=== PATIENT | female | born 1945 | race Caucasian/White ===

== ENCOUNTER → 2016-08-21 | Outpatient (CLI) | payer MEDICARE, BC ==
[~2016-08-21] MED LIST: BENTYL 10MG10 MG/CAP PO; CALCIUM600 MG PO; CETAPHIL ANTIBA1 SOA TP; CETAPHIL1 CRE TP; DIGESTIVE ENZYM1 TAB PO; HYDROCORTISONE RC; HYGROTON25 MG PO; KLOR-CON M2020 MEQ PO; LIPITOR20 MG PO; LOMOTIL 0.025 M1 TAB PO; MAG-OX 400400 MG/TAB PO; METROCREAM CREA45 GM TP; PREVIDENT PO; QUESTRAN4 GM/9 GM PO; SINEQUAN 5050 MG/CAP PO; TYLENOL W/COD1 UDTAB PO; ULTRAM 50MG TAB50 MG PO; XANAX 0.5MG0.5 MG PO; XANAX 1MG1 MG PO; XANAX2 MG PO; ZESTRIL 20MG TA20 MG PO; ZOFRAN ODT4 MG PO; [UNRECOGNIZED DRUG - OTHER] RC
== END ==
LOC: MC.RAD 13:40
DX: Z12.31 Encounter for screening mammogram for malignant neoplasm of breast (principal)

== ENCOUNTER 2017-08-15 09:03 | Emergency (ER) | payer MEDICARE, BC ==
[2017-08-15 09:08] VITALS: BP 141/87; PULSE 91; TEMP 97.3
[2017-08-15] MEDS ORDERED: ULTRAM 50MG TAB50 MG PO (09:19)
== END 2017-08-15 10:15 | disposition home or self-care (01) ==
LOC: COL.ER 09:03
DX: M79.672 Pain in left foot (principal); M77.32 Calcaneal spur, left foot; I10 Essential (primary) hypertension; E78.5 Hyperlipidemia, unspecified; G20 Parkinson's disease; K58.9 Irritable bowel syndrome, unspecified; Z79.52 Long term (current) use of systemic steroids

== ENCOUNTER → 2017-10-14 | Outpatient (CLI) | payer MEDICARE, BC | LOC: MC.RAD 11:21 | DX: Z12.31 Encounter for screening mammogram for malignant neoplasm of breast (principal); R92.1 Mammographic calcification found on diagnostic imaging of breast ==

== ENCOUNTER → 2017-10-22 | Outpatient (CLI) | payer MEDICARE, BC | LOC: MC.RAD 09:44 | DX: R92.0 Mammographic microcalcification found on diagnostic imaging of breast (principal); Z98.890 Other specified postprocedural states ==

== ENCOUNTER → 2017-10-29 | Outpatient (CLI) | payer MEDICARE, BC | LOC: MC.RAD 06:50 | DX: D24.2 Benign neoplasm of left breast (principal); R92.1 Mammographic calcification found on diagnostic imaging of breast ==

== ENCOUNTER 2018-03-15 11:26 | Inpatient (IN) | payer MEDICARE, BC ==
[~2018-03-15] VITALS: Ht 157.5 cm; Wt 63.6 kg
[2018-03-15 12:17] LABS: BASO # 0.1 (0.0-0.2); BASO % 0.4 % (0.0-2.0); EOS % 0.3 % (0-4.0); GRAN # 11.3 (1.4-6.5); GRAN % 86.3 % (42.2-75.2); HEMATOCRIT 43.5 % (37.0-47.0); HEMOGLOBIN 14.9 g/dl (12.5-16.0); LYMPH % 7.5 % (20.0-51.0); MEAN CELL VOLUME 98 fl (80.0-100.0); MEAN CORPUSCULAR HEMOGLOBIN 33 pg (27.0-31.0); MEAN CORPUSCULAR HGB CONC 34 g/dl (33.0-37.0); MEAN PLATELET VOLUME 9.8 fl (7.4-10.4); MONO # 0.7 (0.1-0.6); PLATELET COUNT 253 K/mm3 (130-400); RED BLOOD COUNT 4.46 M/mm3 (4.10-5.30); REDCELL DISTRIBUTION WIDTH-CV 11.7 % (11.5-14.5)
[2018-03-15 12:32] LABS: ALBUMIN 4.1 gm/dL (3.5-5.0); BILIRUBIN,TOTAL 0.6 mg/dL (0.0-1.0); CALCIUM 9.9 mg/dL (8.4-10.2); CREATININE, serum 2.08 mg/dL (0.52-1.25); POTASSIUM 3.3 mmol/L (3.4-5.0); TOTAL PROTEIN 7.6 gm/dL (6.4-8.2)
[2018-03-15 12:49] LABS: C-REACTIVE PROTEIN 22.9 mg/dL (0.0-0.9)
[2018-03-15 13:34] LABS: COLLECTION METHOD CLEAN CATCH
[2018-03-15 13:45] LABS: HYALINE CAST >12 /lpf; MUCOUS Present /lpf; PH 5 (5-8); URINE APPEARANCE Cloudy; URINE BACTERIA Rare /hpf; URINE BILIRUBIN Negative (NEGATIVE); URINE BLOOD 1+ (NEGATIVE); URINE COLOR Yellow; URINE GLUCOSE Negative (NEGATIVE); URINE KETONE 1+ (NEGATIVE); URINE LEUKOCYTE ESTERASE Negative (NEGATIVE); URINE NITRATE Negative (NEGATIVE); URINE PROTEIN(semi-quant) 2+ (NEGATIVE); URINE RBC 0-2 /hpf; URINE UROBILINOGEN Negative (NEGATIVE)
[2018-03-15] MEDS ORDERED: ASPIRIN 81M81 MG/TA2 PO (13:50)
[2018-03-15] MEDS ORDERED: ZESTRIL40 MG PO (13:55)
[2018-03-15] MEDS ORDERED: CLARITIN 1010 MG/TAB PO (13:55)
[2018-03-15] MEDS ORDERED: FLONASEALLERGY NS (13:55)
[2018-03-15] MEDS ORDERED: MASON NATURAL2000 IU (13:56)
[2018-03-15] MEDS ORDERED: MAG-G500 MG (13:56)
[2018-03-15 16:28] VITALS: BP 142/80; PULSE 100; TEMP 98.4
[2018-03-15 16:31] VITALS: BP 142/80; PULSE 100; TEMP 89.4; TEMP 98.4
[2018-03-15 20:03] VITALS: BP 160/73; PULSE 103; TEMP 98.6
[2018-03-16] VITALS (25 sets, daily range): BP systolic 128–186; BP diastolic 62–91; PULSE 88–129; TEMP 98.2–98.8
[2018-03-16 05:59] LABS: BASO # 0.1 (0.0-0.2); BASO % 0.4 % (0.0-2.0); EOS % 0.1 % (0-4.0); GRAN # 9.8 (1.4-6.5); LYMPH # 0.8 (1.2-3.4); LYMPH % 7.1 % (20.0-51.0); MEAN CELL VOLUME 97 fl (80.0-100.0); MEAN CORPUSCULAR HGB CONC 34 g/dl (33.0-37.0); MEAN PLATELET VOLUME 9.7 fl (7.4-10.4); MONO # 0.7 (0.1-0.6); MONO % 6.3 % (1.7-9.3); PLATELET COUNT 194 K/mm3 (130-400); RED BLOOD COUNT 3.71 M/mm3 (4.10-5.30); REDCELL DISTRIBUTION WIDTH-CV 11.7 % (11.5-14.5)
[2018-03-16 06:05] LABS: HEMATOCRIT 36.1 % (37.0-47.0); HEMOGLOBIN 12.2 g/dl (12.5-16.0); MEAN CORPUSCULAR HEMOGLOBIN 33 pg (27.0-31.0)
[2018-03-16 06:11] LABS: INR 1.3 (0.8-3.0); PROTHROMBIN TIME 14.2 SECONDS (9.7-12.8)
[2018-03-16 06:18] LABS: CALCIUM 9.3 mg/dL (8.4-10.2); CREATININE, serum 1.3 mg/dL (0.52-1.25); POTASSIUM 3.8 mmol/L (3.4-5.0)
[2018-03-17 00:25] VITALS: BP 148/70; PULSE 89; TEMP 98.6
[2018-03-17 05:20] VITALS: BP 149/71; PULSE 83; TEMP 97.5
[2018-03-17 06:15] LABS: MEAN CELL VOLUME 98 fl (80.0-100.0); MEAN CORPUSCULAR HEMOGLOBIN 33 pg (27.0-31.0); MEAN CORPUSCULAR HGB CONC 34 g/dl (33.0-37.0); PLATELET COUNT 228 K/mm3 (130-400); RED BLOOD COUNT 3.63 M/mm3 (4.10-5.30); REDCELL DISTRIBUTION WIDTH-CV 11.9 % (11.5-14.5)
[2018-03-17 06:19] LABS: HEMATOCRIT 35.6 % (37.0-47.0)
[2018-03-17 06:28] LABS: CALCIUM 9.3 mg/dL (8.4-10.2); CREATININE, serum 0.95 mg/dL (0.52-1.25); POTASSIUM 4.2 mmol/L (3.4-5.0)
[2018-03-17 07:19] LABS: BAND 17 % (0-10); LYMPHOCYTE 12 % (20.0-51.0); METAMYELOCYTE 1 % (0-0); NEUTROPHILS 59 % (42.0-75.2); PLATELET ESTIMATE NORMAL (NORMAL)
[2018-03-17 08:00] VITALS: BP 158/74; PULSE 87; TEMP 97.9
[2018-03-17 12:00] VITALS: BP 173/76; PULSE 95; TEMP 97.9
[2018-03-17 17:34] VITALS: BP 134/68; PULSE 100; TEMP 98.1
[2018-03-17 20:39] VITALS: BP 151/60; PULSE 91; TEMP 98.6
[2018-03-18] VITALS (9 sets, daily range): BP systolic 97–179; BP diastolic 45–89; PULSE 70–108; TEMP 97–98.7
[2018-03-19 03:30] VITALS: BP 152/55; PULSE 98; TEMP 98.4
[2018-03-19 05:58] LABS: HEMOGLOBIN 12.2 g/dl (12.5-16.0); MEAN CELL VOLUME 94 fl (80.0-100.0); MEAN CORPUSCULAR HEMOGLOBIN 33 pg (27.0-31.0); MEAN CORPUSCULAR HGB CONC 35 g/dl (33.0-37.0); PLATELET COUNT 286 K/mm3 (130-400); RED BLOOD COUNT 3.72 M/mm3 (4.10-5.30); REDCELL DISTRIBUTION WIDTH-CV 12.2 % (11.5-14.5)
[2018-03-19 05:59] LABS: HEMATOCRIT 35.1 % (37.0-47.0)
[2018-03-19 06:08] LABS: CALCIUM 8.5 mg/dL (8.4-10.2); CREATININE, serum 0.76 mg/dL (0.52-1.25); MAGNESIUM 1.7 mg/dL (1.6-2.3)
[2018-03-19 06:21] LABS: POTASSIUM 2.5 mmol/L (3.4-5.0)
[2018-03-19 06:53] LABS: BAND 7 % (0-10); EOSINOPHIL 2 % (0-4); LYMPHOCYTE 23 % (20.0-51.0); NEUTROPHILS 62 % (42.0-75.2)
[2018-03-19 06:54] LABS: PLATELET ESTIMATE NORMAL (NORMAL)
[2018-03-19 07:13] VITALS: BP 156/60; PULSE 105; TEMP 99.1
[2018-03-19] MEDS ORDERED: LEVAQUIN 750MG750 M1 PO (08:52)
[2018-03-19] MEDS ORDERED: FLAGYL500 MG PO (08:53)
[2018-03-19] MEDS ORDERED: NORCO 325 MG-51 TAB PO (08:55)
[2018-03-19 11:09] VITALS: BP 152/85; PULSE 108; TEMP 97.6
[2018-03-19 15:29] VITALS: BP 143/83; PULSE 109; TEMP 98.3
== END 2018-03-19 16:18 | disposition home or self-care (01) | DRG 373 ==
LOC: COL.ER 11:26 → SURG 14:20
PROVIDERS: Internal Medicine; Nurse Practitioner; Physician Assistant; Surgery
PROC: 0D9J30Z Drainage of Appendix with Drainage Device, Percutaneous Approach (ICD-10-PCS; principal; 2018-03-16)
DX: K35.33 Acute appendicitis with perforation, localized peritonitis, and gangrene, with abscess (principal); I10 Essential (primary) hypertension; K58.0 Irritable bowel syndrome with diarrhea; E78.5 Hyperlipidemia, unspecified; E87.6 Hypokalemia; N28.9 Disorder of kidney and ureter, unspecified; E83.42 Hypomagnesemia
CPT/HCPCS: 99223-AI; 99232-AI; 99239; C9113; J0360; J1170; J1650; J1956; J2250; J2405; J3010; J3475; J3480; J7030

== ENCOUNTER → 2018-03-23 | Outpatient (CLI) | payer MEDICARE, BC ==
[~2018-03-23] MED LIST changes: +ASPIRIN 81M81 MG/TA2 PO; +CLARITIN 1010 MG/TAB PO; +FLAGYL500 MG PO; +FLONASEALLERGY NS; +LEVAQUIN 750MG750 M1 PO; +MAG-G500 MG; +MASON NATURAL2000 IU; +NORCO 325 MG-51 TAB PO; +ZESTRIL40 MG PO
[2018-03-23 10:37] LABS: CALCIUM 9.1 mg/dL (8.4-10.2); CREATININE, serum 0.82 mg/dL (0.52-1.25); MAGNESIUM 1.2 mg/dL (1.6-2.3); POTASSIUM 3.7 mmol/L (3.4-5.0)
== END ==
LOC: COL.LAB 09:42
PROVIDERS: Internal Medicine
DX: E87.6 Hypokalemia (principal); E83.42 Hypomagnesemia

== ENCOUNTER 2018-03-24 18:19 | Emergency (ER) | payer MEDICARE, BC ==
[~2018-03-24] VITALS: Ht 157.5 cm; Wt 64.5 kg
[2018-03-24 18:22] VITALS: TEMP 98.5
[2018-03-24 19:26] LABS: BASO % 0.2 % (0.0-2.0); EOS # 0.1 (0.0-0.7); EOS % 0.6 % (0-4.0); GRAN # 8.4 (1.4-6.5); HEMATOCRIT 37.8 % (37.0-47.0); HEMOGLOBIN 12.3 g/dl (12.5-16.0); LYMPH # 2.2 (1.2-3.4); LYMPH % 18.6 % (20.0-51.0); MEAN CELL VOLUME 100 fl (80.0-100.0); MEAN CORPUSCULAR HEMOGLOBIN 33 pg (27.0-31.0); MEAN CORPUSCULAR HGB CONC 33 g/dl (33.0-37.0); MEAN PLATELET VOLUME 9.9 fl (7.4-10.4); MONO # 0.8 (0.1-0.6); MONO % 7.2 % (1.7-9.3); PLATELET COUNT 250 K/mm3 (130-400); RED BLOOD COUNT 3.77 M/mm3 (4.10-5.30); REDCELL DISTRIBUTION WIDTH-CV 12.6 % (11.5-14.5)
[2018-03-24 19:39] LABS: ALBUMIN 3.7 gm/dL (3.5-5.0); BILIRUBIN,TOTAL 0.3 mg/dL (0.0-1.0); C-REACTIVE PROTEIN 1.5 mg/dL (0.0-0.9); CALCIUM 9.1 mg/dL (8.4-10.2); CREATININE, serum 0.9 mg/dL (0.52-1.25); TOTAL PROTEIN 6.9 gm/dL (6.4-8.2)
[2018-03-24 19:53] LABS: COLLECTION METHOD CLEAN CATCH
[2018-03-24 20:14] LABS: HYALINE CAST >12 /lpf; MUCOUS Present /lpf; PH 6 (5-8); SQUAMOUS EPITHELIAL 20-50 /hpf; URINE APPEARANCE Hazy; URINE BACTERIA Rare /hpf; URINE BILIRUBIN Negative (NEGATIVE); URINE BLOOD Negative (NEGATIVE); URINE COLOR Yellow; URINE GLUCOSE Negative (NEGATIVE); URINE KETONE Negative (NEGATIVE); URINE LEUKOCYTE ESTERASE 2+ (NEGATIVE); URINE NITRATE Negative (NEGATIVE); URINE PROTEIN(semi-quant) 1+ (NEGATIVE); URINE UROBILINOGEN Negative (NEGATIVE)
[2018-03-24 20:59] VITALS: BP 163/76; PULSE 113
== END 2018-03-24 21:06 | disposition home or self-care (01) ==
LOC: COL.ER 18:19
PROVIDERS: Emergency Medicine
DX: R10.9 Unspecified abdominal pain (principal); K58.9 Irritable bowel syndrome, unspecified; I10 Essential (primary) hypertension; E78.5 Hyperlipidemia, unspecified; Z79.51 Long term (current) use of inhaled steroids; Z79.82 Long term (current) use of aspirin; Z90.49 Acquired absence of other specified parts of digestive tract; Z98.890 Other specified postprocedural states
CPT/HCPCS: J2270; J7030; Q9967

== ENCOUNTER 2018-06-23 06:52 | Inpatient (IN) | payer MEDICARE, BC ==
[~2018-06-23] VITALS: Ht 157.5 cm; Wt 63.7 kg
[2018-06-23] VITALS (10 sets, daily range): BP systolic 126–171; BP diastolic 44–70; PULSE 88–104; TEMP 97.6–9736
[~2018-06-23 06:52] MED LIST changes: -MAG-G500 MG; +MAG-G500 MG PO
[2018-06-23] MEDS ORDERED: DIGESTIVE PROB1 EACH PO (07:55)
--- NOTE | 2018-06-23 07:58 | NUR ---
TO RM 6 AT 0710- CALL LIGHT IN REACH BROTHER AT BEDSIDE.
--- NOTE | 2018-06-23 12:45 | NUR ---
returned to room per bed from PACU, awake and alert but sleepy, IV infusing per dial-a-flow at rate 100ml/hr, O2 off and O2 sat 98%, has 6cm area of bloody drainage on distal midline abdominal dressing, has bandaid to left lower quadran, abdomen soft but slightly distended, full assessment completed, see interventions for further info, Dr. Fonseca in visiting with patient and her ,
--- NOTE | 2018-06-23 13:00 | NUR ---
given scheduled antibiotics with sips of water and crackers,
--- NOTE | 2018-06-23 13:30 | NUR ---
assisted up to bathroom and voided qs, then back to bed and will continue to rest, drainage to dressing remains the same
--- NOTE | 2018-06-23 14:30 | NUR ---
assisted up to bathroom and voided qs and then back to bed
--- NOTE | 2018-06-23 15:07 | NUR ---
c/o pain over belly buttom at 3/10 and medicated with percocet 5mg tab, also c/o minimal nausea, given crackers and sprite
--- NOTE | 2018-06-23 15:30 | NUR ---
midline dressing has increased drainage to distal end and some down the middle, distal end reinforced with hypafix tape
--- NOTE | 2018-06-23 16:24 | NUR ---
states relief from pain pill, will order something light to eat, abdominal dressing remains intact and no new drainage noted
--- NOTE | 2018-06-23 17:40 | NUR ---
she called asking if she could have something for emesis, entered room and she had a small amount liquid emesis after taking only a couple of bites of food, medicated with zofran 4mg slow IV
--- NOTE | 2018-06-23 18:50 | NUR ---
bedside shift report given to TANNER Vasquez
--- NOTE | 2018-06-23 19:30 | NUR ---
Pt. sitting up in bed at this time. Pt. is A&OX3, assessment complete. IV to lt. wrist patent, IV fluids infusing per orders. Pt. reports pain at a 3 on pain scale at this time. Midline incision with airstrip, drainage noted. Pt. denies further needs at this time. Call light within reach.
[2018-06-24] VITALS (7 sets, daily range): BP systolic 118–151; BP diastolic 49–70; PULSE 85–99; TEMP 97.8–99.1
--- NOTE | 2018-06-24 06:03 | NUR ---
Pt. slept off and on through the night. Pt. remains A&OX3. IV to lt wrist patent. Pt. given pain meds per request through the night. Dressing to abd, with some drainage noted. Pt. denies further needs at this time. Call light within reach.
--- NOTE | 2018-06-24 06:55 | NUR ---
awake resting in bed, bedside shift report received from TANNER Vasquez
--- NOTE | 2018-06-24 08:00 | NUR ---
sitting up on side of bed, IV to INT, will order breakfast soon, denies abdominal pain, c/o pain to right foot, will monitor
--- NOTE | 2018-06-24 09:15 | NUR ---
resting in bed, has had small amount of breakfast, c/o pain 10/14 and medicated with percocet 5mg 1 tab, abdominal dressing with mod amount old drainage
--- NOTE | 2018-06-24 10:02 | NUR ---
Dr Fonseca in to see patient, airstrip removed and incision with ludivina CD&I, redressed with new airstrip, INT with some blooding oozing, dressing removed and cleaned with gauze and redressed with tegaderm, will get up and ambulate in [place] independently
[2018-06-24 10:27] LABS: INR 1.1 (0.8-3.0); PROTHROMBIN TIME 12.1 SECONDS (9.7-12.8)
--- NOTE | 2018-06-24 10:29 | NUR ---
am meds given, ambulating in [place] independently
[2018-06-24 10:32] LABS: ALBUMIN 4.2 gm/dL (3.5-5.0); BILIRUBIN,TOTAL 0.5 mg/dL (0.0-1.0); CALCIUM 9.2 mg/dL (8.4-10.2); CREATININE, serum 0.78 mg/dL (0.52-1.25); POTASSIUM 4.1 mmol/L (3.4-5.0); TOTAL PROTEIN 7.4 gm/dL (6.4-8.2)
[2018-06-24 10:38] LABS: HEMATOCRIT 37.3 % (37.0-47.0); HEMOGLOBIN 12.6 g/dl (12.5-16.0); MEAN CELL VOLUME 97 fl (80.0-100.0); MEAN CORPUSCULAR HEMOGLOBIN 33 pg (27.0-31.0); MEAN CORPUSCULAR HGB CONC 34 g/dl (33.0-37.0); MEAN PLATELET VOLUME 9.7 fl (7.4-10.4); PLATELET COUNT 195 K/mm3 (130-400); RED BLOOD COUNT 3.84 M/mm3 (4.10-5.30); REDCELL DISTRIBUTION WIDTH-CV 12.2 % (11.5-14.5)
--- NOTE | 2018-06-24 10:43 | NUR ---
Initial visit; Living Skills Advisor introduced herself to patient and learned that patient's [facility] has been notified that she is a patient here at [facility]. Living Skills Advisor wished her a thorough recovery.
[2018-06-24 11:05] LABS: BAND 8 % (0-10); LYMPHOCYTE 10 % (20.0-51.0); NEUTROPHILS 78 % (42.0-75.2); PLATELET ESTIMATE NORMAL (NORMAL)
--- NOTE | 2018-06-24 11:37 | NUR ---
SUJEY student met with patient to discuss discharge plan. The patient lives in [place] with her brother, Sergo. The patient does not use any assistive devices and is indpendent with ADLs. The patient's PCP is Dr. Lori Kendrick and she receives her medications from [facility]. The patient reports that she receives assitance from [employer] with prescription coverage. The patient's DPOA-HC is in EMR and she designates her brother. The patient plans to return home upon discharge. Patient reports that doctor believes that will be tomorrow, 06/25. No identified needs at this time.
--- NOTE | 2018-06-24 12:00 | NUR ---
up and about in room independently
--- NOTE | 2018-06-24 13:00 | NUR ---
resting in bed, has had small amount lf lunch and tolerated well
--- NOTE | 2018-06-24 14:15 | NUR ---
c/o pain 11/14 to abdomen, medicated with percocet 5mg 1 tab
--- NOTE | 2018-06-24 15:42 | NUR ---
ambulating in [place] with brother
--- NOTE | 2018-06-24 18:49 | NUR ---
bedside shift report given to TANNER Dawkins
[2018-06-25] VITALS (7 sets, daily range): BP systolic 108–154; BP diastolic 48–74; PULSE 89–108; TEMP 97.9–99.4
--- NOTE | 2018-06-25 06:00 | NUR ---
Pt slept during the night, not much C/O pain, VS have remained stable, shift assessments no significant issues noted.
--- NOTE | 2018-06-25 11:12 | NUR ---
Pt up as tolerated. Dressing to abdomen clean, dry and intact. pt has no complaints.
--- NOTE | 2018-06-25 13:41 | NUR ---
Pt passing flatus but no BM. visit from family. Pt up in chair.
--- NOTE | 2018-06-25 16:09 | NUR ---
Patient resting in bed. She reports increased pain after going on a walk. One tab percocet per request. Midline dressing removed, ludivina intact. Bandaid removed from lap site in RLQ. Int. Tolerating diet. Scds ble. Patient has ambulated the hallways with her brother, she continues to do well.
--- NOTE | 2018-06-25 19:13 | NUR ---
Patient did well with dinner. Percocet managed pain. Bedside report to Juancho HART
--- NOTE | 2018-06-25 20:35 | NUR ---
Pt resting in bed, C/O mild pain, shift assessments complete, left Pt call light in reach, bed in lowest position.
[2018-06-26 03:32] VITALS: BP 120/48; PULSE 85; TEMP 98
--- NOTE | 2018-06-26 05:52 | NUR ---
Pt slept well during the night, she had little C/O pain and medications were given for relief, Pt had a bowel movement early in the shift, VS have remained stable during the night.
[2018-06-26 07:09] VITALS: BP 139/61; PULSE 96; TEMP 98.4
--- NOTE | 2018-06-26 07:22 | NUR ---
Pt sitting up in bed and tolerating breakfast well. ludivina intact with no redness or swelling.
--- NOTE | 2018-06-26 08:23 | NUR ---
Patient sitting up in bed eating breakfast. Student nurse working with patient. assessment completed. Minimal needs. WIll monitor
--- NOTE | 2018-06-26 10:57 | NUR ---
Pt taken pain medication in am d/t abdominal pain. pain level was 8. pt up in chair after taken shower.
[2018-06-26 12:05] VITALS: BP 148/75; PULSE 99; TEMP 98.5
[2018-06-26] MEDS ORDERED: PERCOCET 325 MG1 TA2 PO (13:33)
[2018-06-26] MEDS ORDERED: FLAGYL500 MG PO (13:33)
[2018-06-26] MEDS ORDERED: CIPRO 500MG TA500 MG PO (13:33)
--- NOTE | 2018-06-26 15:00 | NUR ---
Patient ready for discharge. Dr. Fonseca rounded & orders obtained. Patient given all discharge instructions. Script for percocet, cipro & flagyl sent with patient. We reviewed medications list and last dose taken. We discussed her follow up appt next week. We discussed incision care & signs & symptoms of infection. Patient vebalized all understanding. Her brother taking her home. patient wheeled out with all belongigns.
== END 2018-06-26 16:02 | disposition home or self-care (01) | DRG 340 ==
LOC: SDCO 06:52 → SURG 12:45 → SDCO 06-24 09:31 → SURG 06-24 09:32
PROVIDERS: ADMIT Surgery
PROC: 0DTJ0ZZ Resection of Appendix, Open Approach (ICD-10-PCS; principal; 2018-06-23 08:30)
PROC: 0WJG4ZZ Inspection of Peritoneal Cavity, Percutaneous Endoscopic Approach (ICD-10-PCS; 2018-06-23 08:30)
DX: K35.33 Acute appendicitis with perforation, localized peritonitis, and gangrene, with abscess (principal); I10 Essential (primary) hypertension; K58.9 Irritable bowel syndrome, unspecified
CPT/HCPCS: OP; G0378; G0379; J0690; J1100; J1170; J1885; J2405; J2704; J2795; J3010; J7120

== ENCOUNTER → 2018-12-10 | Outpatient (CLI) | payer MEDICARE, BC ==
[~2018-12-10] MED LIST changes: +CIPRO 500MG TA500 MG PO; +DIGESTIVE PROB1 EACH PO; +PERCOCET 325 MG1 TA2 PO
== END ==
LOC: MC.RAD 09:28
DX: Z12.31 Encounter for screening mammogram for malignant neoplasm of breast (principal); Z98.82 Breast implant status

== ENCOUNTER → 2019-01-26 | Outpatient (CLI) | payer MEDICARE, BC | LOC: COL.RAD 13:17 | DX: N28.1 Cyst of kidney, acquired (principal) ==

== ENCOUNTER 2020-06-06 05:23 | Day surgery (SDC) | payer MEDICARE, BC ==
[2020-06-06] VITALS (11 sets, daily range): BP systolic 123–170; BP diastolic 59–88; PULSE 67–100; TEMP 97.9–98.4
[~2020-06-06] VITALS: Ht 157.5 cm; Wt 68.6 kg
[2020-06-06] MEDS ORDERED: LEXAPRO 10MG10 MG PO (06:48)
[2020-06-06] MEDS ORDERED: ANTIVERT 25MG25 MG PO (06:48)
[2020-06-06] MEDS ORDERED: ZESTRIL30 MG PO (06:49)
[2020-06-06] MEDS ORDERED: XANAX .25M0.25 MG/TA PO (06:50)
[2020-06-06] MEDS ORDERED: ASPIRIN 81M81 MG/TA2 PO (06:51)
[2020-06-06] MEDS ORDERED: LIPITOR 40MG TA40 MG PO (06:52)
[2020-06-06] MEDS ORDERED: TYLENOL 325MG325 MG PO (06:53)
[2020-06-06] MEDS ORDERED: VOLTAREN GEL 1%1 TU TP (06:53)
[2020-06-06] MEDS ORDERED: DIGESTIVE ADVA1 EAC3 PO (06:54)
[2020-06-06] MEDS ORDERED: BENTYL 10MG10 MG/CAP PO (06:55)
[2020-06-06] MEDS ORDERED: LOMOTIL 0.025 M1 TAB PO (06:55)
[2020-06-06] MEDS ORDERED: SINEQUAN 5050 MG/CAP PO (06:56)
[2020-06-06] MEDS ORDERED: FLONASEALLERGY NS (06:57)
[2020-06-06] MEDS ORDERED: CLARITIN 1010 MG/TAB (06:58)
[2020-06-06] MEDS ORDERED: GENTEAL TEARS 015 M1 OP (06:58)
[2020-06-06] MEDS ORDERED: MAGNESIUM500 MG PO (07:00)
[2020-06-06] MEDS ORDERED: K-DUR20 MEQ PO (07:01)
[2020-06-06] MEDS ORDERED: MASON NATURAL2000 IU PO (07:02)
--- NOTE | 2020-06-06 11:00 | NUR ---
Patient alert, drowsy. See assessment. Midline incision with dressing CDI. SCOTT drain compressed, scant amount of serosanguinous drainage noted. Post op exercises reviewed with patient. Continues on post op vitals. No c/o at this time.
--- NOTE | 2020-06-06 21:11 | NUR ---
PT SETTING UP IN BED, AMBULATING IN ROOM W NURSE ASST. HELPED TO COMMODE, CHELSEA PAD PUT ON W PANTIES DUE TO LEAKING. LOOSE BM TONIGHT. DRAIN CARE REVIEWED, PT STATES HAS HAD DRAIN IN PAST. DENIES SOA, CHEST PAIN OR DIZZY. NORCO GIVEN LAST SHIFT AND MED LIST REVIEWED FOR [place] MEDS/PRNS. ASSESSMENT AND POC DISCUSSED. NEEDS MET.
--- NOTE | 2020-06-06 21:56 | NUR ---
PT UP TO VOID W NURSE ASST. NORCO 5MG 2 TABS GIVEN FOR 9/10 PAIN. CALL LIGHT WI REACH. WANTS TO SLEEP W LIGHTS UP TONIGHT. NEEDS MET
--- NOTE | 2020-06-06 23:00 | NUR ---
EMPTIED 20 CC FROM SCOTT. BULB COMPRESSED. PT RESTING WITH EYES CLOSED, RESP EVEN AND UNLABORED. NEEDS MET.
[2020-06-07 00:44] VITALS: BP 147/54; PULSE 55; TEMP 97.9
--- NOTE | 2020-06-07 02:24 | NUR ---
PT UP TO BR TO VOID W NURSE ASST. PAIN 10/14. NORCO X 2 TABS GIVEN FOR INCISIONAL PAIN. NEEDS MET.
[2020-06-07 04:11] VITALS: BP 126/65; PULSE 93; TEMP 98.6
--- NOTE | 2020-06-07 05:48 | NUR ---
PT RESTING MOST OF NIGHT WITH OUT COMPLICATIONS. SCOTT DRAIN EMPTIED THIS MORNING. DSG REMAINS C/D/I TO MID ABDOMEN.
--- NOTE | 2020-06-07 07:34 | NUR ---
Patient sitting up at edge of bed. Working on breakfast, reports slight nausea. Denies the need for for nausea medication. Rating pain 7/10 to drain site. [place] per request. Antonio drain to compression. Midline dressing CDI. Bowels audibe, reports having BMs overnight. Ivf to R.wrist. Scds. Will monitor.
[2020-06-07 08:00] VITALS: BP 146/72; PULSE 89; TEMP 97.9
[2020-06-07] MEDS ORDERED: ZOFRAN 4MG T4 MG/TAB PO (08:34)
[2020-06-07] MEDS ORDERED: NORCO 325 MG-51 TAB PO (08:34)
--- NOTE | 2020-06-07 09:43 | NUR ---
Patient independent in room. Alert & oriented. rounded. Discharge orders obtained. Patient given all discharge instructions. She was able to demonstrate Antonio drain emptying. She was given form to record her drain outputs. She verbalized understand of keeping records. We discused incisions cares & signs & symptoms of when to call doctor. Supplies sent with patient. Script for [place] & zofran send to pharmacy of choice. We reviewed medications safety, side effects & home meds list with last dose taken today. Int dc. Mehul brother to pick her up at 11. Will continue to monitor.
--- NOTE | 2020-06-07 11:20 | NUR ---
PATIENT READY FOR DISCAHRGE, DENEIS QUESTIONS OR CONCERNS. FREDYMARCIEKane WHEELED OUT WITH ALL BELONGINGS, HE BROTHER TAKING HER HOME
== END 2020-06-07 11:20 | disposition home or self-care (01) ==
LOC: SDCO 05:23 → SURG 10:28 → SDCO 06-07 11:20
DX: K43.2 Incisional hernia without obstruction or gangrene (principal); I10 Essential (primary) hypertension; K58.0 Irritable bowel syndrome with diarrhea; E78.00 Pure hypercholesterolemia, unspecified; E78.5 Hyperlipidemia, unspecified; Z20.822 Contact with and (suspected) exposure to COVID-19; Z79.82 Long term (current) use of aspirin; Z79.899 Other long term (current) drug therapy; Z88.1 Allergy status to other antibiotic agents; Z88.0 Allergy status to penicillin; Z88.2 Allergy status to sulfonamides; Z88.8 Allergy status to other drugs, medicaments and biological substances
CPT/HCPCS: OP; C1781; J0690; J1100; J1170; J2370; J2405; J2704; J3010; J7120

== ENCOUNTER 2021-07-07 13:27 | Emergency (ER) | payer MEDICARE, BC ==
[~2021-07-07] VITALS: Ht 157.5 cm; Wt 59.1 kg
[~2021-07-07 13:27] MED LIST changes: +ANTIVERT 25MG25 MG PO; +CLARITIN 1010 MG/TAB; +DIGESTIVE ADVA1 EAC3 PO; +GENTEAL TEARS 015 M1 OP; +K-DUR20 MEQ PO; +LEXAPRO 10MG10 MG PO; +LIPITOR 40MG TA40 MG PO; +MAGNESIUM500 MG PO; +MASON NATURAL2000 IU PO; +TYLENOL 325MG325 MG PO; +VOLTAREN GEL 1%1 TU TP; +XANAX .25M0.25 MG/TA PO; +ZESTRIL30 MG PO; +ZOFRAN 4MG T4 MG/TAB PO
[2021-07-07 13:34] VITALS: TEMP 97.8
[2021-07-07 14:31] VITALS: BP 168/92; PULSE 85
== END 2021-07-07 14:31 | disposition home or self-care (01) ==
LOC: COL.ER 13:27
DX: S09.90XA Unspecified injury of head, initial encounter (principal); S00.03XA Contusion of scalp, initial encounter; M25.561 Pain in right knee; M25.562 Pain in left knee; Z88.6 Allergy status to analgesic agent; W01.198A Fall on same level from slipping, tripping and stumbling with subsequent striking against other object, initial encounter

== ENCOUNTER 2021-10-26 15:01 | Emergency (ER) | payer MEDICARE, BC ==
[~2021-10-26] VITALS: Ht 157.5 cm; Wt 68.2 kg
[2021-10-26 15:06] VITALS: BP 196/94; PULSE 92; TEMP 97.7
[2021-10-26] MEDS ORDERED: NORCO 325 MG-51 TAB PO (15:49)
[2021-10-26] MEDS ORDERED: CRUTCHES MC (15:51)
== END 2021-10-26 16:16 | disposition home or self-care (01) ==
LOC: COL.ER 15:01
DX: S92.332A Displaced fracture of third metatarsal bone, left foot, initial encounter for closed fracture (principal); S92.342A Displaced fracture of fourth metatarsal bone, left foot, initial encounter for closed fracture; Z88.6 Allergy status to analgesic agent; W01.0XXA Fall on same level from slipping, tripping and stumbling without subsequent striking against object, initial encounter

== ENCOUNTER 2023-05-13 09:18 | Emergency (ER) | payer MEDICARE, BC ==
[~2023-05-13] VITALS: Ht 157.5 cm; Wt 59.1 kg
[~2023-05-13 09:18] MED LIST changes: +CRUTCHES MC
[2023-05-13 09:30] VITALS: BP 174/90; TEMP 97.7
[2023-05-13] MEDS ORDERED: predniSONE 50 MG TAB PO ONE (12:00)
[2023-05-13] MEDS ORDERED: Doxycycline Monohydrate 100 MG CAP PO ONE (12:00)
[2023-05-13] MEDS ORDERED: DOXYCYCLINE 10100 MG PO (12:03)
[2023-05-13] MEDS ORDERED: PREDNISONE50 MG PO (12:03)
[2023-05-13 12:14] VITALS: PULSE 85
== END 2023-05-13 12:16 | disposition home or self-care (01) ==
LOC: COL.ER 09:18
DX: J40 Bronchitis, not specified as acute or chronic (principal); R07.81 Pleurodynia; Z88.0 Allergy status to penicillin; Z88.1 Allergy status to other antibiotic agents; Z88.2 Allergy status to sulfonamides
CPT/HCPCS: J7512

== ENCOUNTER 2023-11-28 10:50 | Emergency (ER) | payer MEDICARE, BC ==
[~2023-11-28] VITALS: Ht 157.5 cm; Wt 68.2 kg
[~2023-11-28 10:50] MED LIST changes: +DOXYCYCLINE 10100 MG PO; +PREDNISONE50 MG PO
[2023-11-28 10:59] VITALS: TEMP 98
[2023-11-28] MEDS ORDERED: Morphine 4 MG/ML VIAL IV ONE (13:00)
[2023-11-28 13:11] LABS: BASO % 0.3 % (0.0-2.0); EOS # 0.1 K/mm3 (0.0-0.7); EOS % 1.6 % (0.0-4.0); GRAN # 4.3 K/mm3 (1.4-6.5); GRAN % 64.3 % (42.2-75.2); HEMATOCRIT 43.7 % (37.0-47.0); HEMOGLOBIN 14.6 g/dl (12.5-16.0); LYMPH # 1.8 K/mm3 (1.2-3.4); LYMPH % 26.7 % (20.0-51.0); MEAN CELL VOLUME 100 fl (80.0-100.0); MEAN CORPUSCULAR HEMOGLOBIN 33 pg (27-31); MEAN CORPUSCULAR HGB CONC 33 g/dl (33.0-37.0); MEAN PLATELET VOLUME 9.2 fl (7.4-10.4); MONO # 0.4 K/mm3 (0.1-0.6); MONO % 6.1 % (1.7-9.3); PLATELET COUNT 188 K/mm3 (130-400); RED BLOOD COUNT 4.38 M/mm3 (4.10-5.30); REDCELL DISTRIBUTION WIDTH-CV 11.7 % (11.5-14.5)
[2023-11-28 13:36] LABS: ALANINE AMINOTRANSFERASE 14 U/L (0-55); ALBUMIN 4.2 g/dL (3.4-4.8); ALKALINE PHOSPHATASE 82 U/L (40-150); ANION GAP 12 mmol/L (7-16); AST,SGOT 16 U/L (5-34); BILIRUBIN,TOTAL 0.3 mg/dL (0.2-1.2); BLOOD UREA NITROGEN 20 mg/dL (10-20); CALCIUM 9.6 mg/dL (8.4-10.2); CHLORIDE 109 mEq/L (98-107); CREATININE, serum 0.83 mg/dL (0.57-1.11); GLUCOSE 94 mg/dL (70-99); POTASSIUM 4.2 mEq/L (3.5-4.5); SODIUM 143 mEq/L (136-145); TOTAL PROTEIN 7.2 g/dl (6.2-8.1)
[2023-11-28 13:44] LABS: TROPONIN-I < 0.010 ng/mL (0.00-0.033)
[2023-11-28] MEDS ORDERED: PREDNISONE50 MG PO (15:02)
[2023-11-28 15:25] VITALS: BP 151/64; PULSE 69
== END 2023-11-28 15:25 | disposition home or self-care (01) ==
LOC: COL.ER 10:50
PROVIDERS: Nurse Practitioner
DX: R07.89 Other chest pain (principal)
CPT/HCPCS: J2270